=== PATIENT | male | born 1980 | race Hispanic/Latino ===

== ENCOUNTER → 2017-11-13 08:54 | Outpatient (CLI) | payer OTHER, SELFPAY ==
[2017-11-13 09:36] LABS: Add Manual Diff / Slide Review NO; Basophils Percent Auto 0.6 % (0-2); Eosinophils Percent Auto 2.2 % (2-4); Hematocrit 42.8 % (41-53); Hemoglobin 14.5 g/dL (13.5-17.5); Lymphocytes Percent Auto 33.2 % (25-40); Mean Corpuscular Hemoglobin 28.3 PG (26-34); Mean Corpuscular Volume 83.4 fL (80-100); Neutrophils Absolute Auto 5000 /uL (3000-5900); Platelet Count 385 X10^3/uL (150-400); Red Blood Cell Count 5.13 X10^6/uL (4.5-5.9); White Blood Cell Count 8.6 X10^3/uL (4.5-11.0)
[2017-11-13 09:46] LABS: Alanine Aminotransferase 27 IU/L (21-72); Albumin 4.2 g/dL (3.5-5.0); Albumin Globulin Ratio 1.3 (1.0-2.8); Alkaline Phosphatase 87 U/L (38-126); Aspartate Aminotransferase 25 IU/L (17-59); BUN Creatinine Ratio 14.4 (6-22); Bilirubin Total 0.4 mg/dL (0.2-1.3); Blood Urea Nitrogen 13 mg/dL (9-20); Calcium 9.1 mg/dL (8.4-10.2); Carbon Dioxide 31 mmol/L (22-32); Chloride 106 mmol/L (98-107); Cholesterol 162 mg/dL (140-199); Estimated Glomerular Filt Rate > 60.0 mL/min (>60); Globulin 3.3 g/dL (1.7-4.1); Glucose 104 mg/dL (70-100); HDL Cholesterol 45 mg/dL (40-60); HEMOLYSIS < 15 (0-50); LDL Cholesterol Calculated 92 mg/dL (<100); Potassium 4.6 mmol/L (3.4-5.1); Sodium 144 mmol/L (137-145); Total Protein 7.5 g/dL (6.3-8.2); Triglycerides 124 mg/dL (35-150)
[2017-11-13 10:11] LABS: Vitamin D 25 Hydroxy (D3) 31.6 ng/mL (30.0-100.0)
== END ==
PROVIDERS: PCP Physician Assistant; Visit Provider Family Medicine
DX: R79.89 Other specified abnormal findings of blood chemistry (principal); F32.9 Major depressive disorder, single episode, unspecified; E66.01 Morbid (severe) obesity due to excess calories; Z51.81 Encounter for therapeutic drug level monitoring
CPT/HCPCS: 36415; 80053; 80061; 82306; 85025

== ENCOUNTER → 2021-04-06 08:50 | Outpatient (CLI) | payer OTHER, SELFPAY ==
[2021-04-06 10:29] LABS: Hepatitis B Surface Antigen NEGATIVE s/c (NEGATIVE)
[2021-04-06 10:46] LABS: HIV 1 & 2 Ab/Ag 4th Gen Combo NEGATIVE (NEGATIVE); Hep C Virus Ab w/Reflex Quant NEGATIVE s/c (NEGATIVE)
[2021-04-13 10:50] LABS: RPR Screen REACTIVE
[2021-04-13 10:53] LABS: RPR Quant + RPR Abs NON REACTIVE
== END ==
PROVIDERS: PCP Student in an Organized Health Care Education/Training Program; Referring Provider Obstetrics & Gynecology; Visit Provider Obstetrics & Gynecology
DX: Z11.59 Encounter for screening for other viral diseases (principal); Z11.4 Encounter for screening for human immunodeficiency virus [HIV]; Z11.3 Encounter for screening for infections with a predominantly sexual mode of transmission
CPT/HCPCS: 36415; 86592; 86803; 87340; 87389

== ENCOUNTER → 2024-10-13 18:49 | Outpatient (CLI) | payer OTHER, SELFPAY ==
--- NOTE | 2024-10-13 18:50 | DI.RAD.S_ITS ---
PROCEDURE: XR ANKLE RT MIN 3V INDICATIONS: Rule out fracture, avulsion, OA TECHNIQUE: 3 views of the ankle were acquired. COMPARISON: None. FINDINGS: Bones: No fractures or dislocations. Ankle mortise is normally aligned. No suspicious bony lesions. Soft tissues: No tibiotalar joint effusion. Achilles tendon appears normal. IMPRESSION: No acute osseous abnormality. If pain persists with conservative management, consider repeat x-ray in 10-14 days or cross-sectional imaging. Dictated by: Thomas Gan M.D. on 10/13/2024 at 19:54 Approved by: Thomas Gan M.D. on 10/13/2024 at 19:55
== END ==
LOC: RAD 18:49
PROVIDERS: Referring Provider Chiropractor; Visit Provider Chiropractor
DX: S93.401A Sprain of unspecified ligament of right ankle, initial encounter (principal); X58.XXXA Exposure to other specified factors, initial encounter
CPT/HCPCS: 73610